=== PATIENT | female | born 1985 | race African-American/Black ===

== ENCOUNTER → 2024-12-14 14:48 | Outpatient (BNVA) | payer OTHER, SELFPAY | PROVIDERS: Visit Provider Surgery ==

== ENCOUNTER 2024-12-17 08:24 | Outpatient (AMB) | payer OTHER, SELFPAY ==
--- OUTSIDE RECORDS SUMMARY | 2024-12-17 08:26 | XMS_ITS | Clinical Summary ---
Author Organization [facility] [address] [place] [address] Address [address] [place], [place] Phone Care Team Providers Care Food And Beverage Lead Name Role Phone Britney Wasserman MD Primary Care Provider [phone] Allergies No known active allergies Medications No known medications Active Problems Problem Noted Date Diagnosed Date Major depression 10/05/2019 Overview (06/25/2024): Followed by [facility] Obesity 02/10/2015 Plantar fasciitis, bilateral 04/22/2014 Anemia 04/01/2009 Overview (06/25/2024): IMO Update Fall 2015 Encounters Date Type Department Care Team Description 11/16/2024 1:36 PM EDT - 11/16/2024 11:59 PM EDT Hospital Encounter Radiology Department - [address] [phone] Symptoms in breast Discharge Disposition: Home or Self Care 11/16/2024 1:36 PM EDT - 11/16/2024 11:59 PM EDT Hospital Encounter Radiology Department - [address] [phone] Symptoms in breast Discharge Disposition: Home or Self Care 11/05/2024 9:00 AM EDT Office Visit Adult Medicine [address] [phone] Catherine Killian, FIORDALIZA Symptoms in breast (Primary Dx) 11/02/2024 Telephone Adult Medicine [address] [phone] Britney Wasserman MD Breast Problem from Last 3 Months Immunizations Name Administration Dates Next Due PPD Test 10/05/2013 Tdap Tetanus diptheria acell ular pertussis (Boostrix; Adacel) 7yo and older 07/13/2017,10/04/2013 Surgical History Surgery Date Site/Laterality Comments TONSILLECTOMY PROCEDURE: HISTORICAL TONSILLECTOMY OVARIAN CYST REMOVAL 07/2011 PROCEDURE: OH OVARIAN CYSTECTOMY UNI/BI; COMMENT: L WISDOM TOOTH EXTRACTION 12/2016 PROCEDURE: HISTORICAL WISDOM TEETH EXTRACTION; COMMENT: 3 wisdon teeth removed COLPOSCOPY 2005 PROCEDURE: OH COLPOSCOPY ENTIRE VAGINA W/VAGINA/CERVIX BX Medical History Medical History Date Comments Anemia DX:Anemia Seasonal allergies DX:Seasonal a llergies Other specified personal his tory presenting hazards to health(V15.89) 2005 DX:Other specifie d personal history presenting hazards to health(V15.89); COMMENT: ?MAILE I Plantar fasciitis, bilateral 04/22/2014 DX: Plantar fasciitis, bilateral Family History Medical History Relation Name Comments Colon cancer Aunt maternal aunt u terine ca,luekemia No Known Problems Brother Healthy No Known Problems Daughter Healthy No Known Problems Father Healthy No Known Problems Maternal Grandfather No Known Problems Maternal Grandmother No known family hx, passed when her mother was 5 years old No Known Problems Mother Healthy No Known Problems Paternal Grandfather He althy Diabetes Paternal Grandmother Passed around age 60 Hypertension Paternal Grandmother Other: Kidney transplant Paternal Grandmother Thyroid disease Sister Colon cancer Uncle pat side - gran dmother's brother Breast cancer Neg Hx Ovarian cancer Neg Hx Pancreatic cancer Neg Hx Prostate cancer Neg Hx Relation Name Status Comments Aunt Brother Alive healthy Daughter Alive Father Alive healthy Maternal Grandfather Maternal Grandmother Mother Alive asthma Paternal Grandfather Alive Paternal Grandmother Sister Alive thyroid disorde r Uncle Social History Tobacco Use Types Packs/Day Years Used Date Smoking Tobacco: Light Smoker Smokeless Tobacco: Never Alcohol Use Standard Drinks/Week Comments Yes 0 (1 standard drink = 0.6 oz pur e alcohol) Housing Instability Answer Date Recorde d Are you worried that in the next 2 months you may not have stable housing? No 11/03/2024 Food Access & Nutrition Answer Date Rec orded Do you have access to a vari ety of food including fruits and vegetables? No 11/03/2024 Access to Healthcare Answer Date Record ed Within the last 3 months, ho w many times did you visit the emergency department for your medical care? 0 11/03/2024 Health Literacy Answer Date Recorded How often do you need to hav e someone help you when you read instructions, pamphlets, or other written material from your doctor or pharmacy? Never 11/03/2024 Caregiver: How often do you need to have someone help you when you read instructions, pamphlets, or other written material from your doctor or pharmacy? Not on file 11/03/2024 Financial Risk Answer Date Recorded How hard is it for you to pa y for the very basics like food, housing, medical care, and air conditioning / heating? Not very hard 11/03/2024 Transportation Answer Date Recorded Has the lack of transportati on kept you from meetings, work, or from getting things needed for daily living? No Has the lack of transportati on kept you from medical appointments or from getting medications? No 11/03/2024 Social Isolation Answer Date Recorded How often do you feel lonely or isolated from th ose around you? Never 11/03/2024 Food Risk Answer Date Recorded Within the past 12 months we worried whether our food would run out before we got money to buy more. Never true 11/03/2024 Within the past 12 months th e food we bought just didn't last and we didn't have money to get more. Never true 11/03/2024 Dependent Care Answer Date Recorded Do you need help finding or paying for care for your loved ones. For example, childrens club attendant or elderly care for an older adult? No 11/03/2024 Education Answer Date Recorded Do you think completing more education or training, like finishing a GED, going to college, or learning a trade, would be helpful for you? No 11/03/2024 Employment and Income Answer Date Recor ded During the last four weeks, have you been actively looking for work? No 11/03/2024 Living Situation Answer Date Recorded What is your living situation? 0 11/03/2024 Comments Unknown Sex and Gender Information Value Date Recorded Sex Assigned at Not on file Legal Sex Female 4:00 AM EST Gender Identity Not on file Sexual Orientation Not on file Obstetrics History Para Term AB IAB SAB Ectopic Multiple Livin g Live Births 2 2 2 2 Date Outcome GA Total Labor Labor/2nd/3rd Weight Sex Type Anes PTL Emily A1 A5 Name Clin Term Term Last Filed Vital Signs Vital Sign Reading Time Taken Comments Blood Pressure 128/74 11/05/2024 9:23 AM EDT Pulse 74 11/05/2024 9:23 AM EDT Temperature 36.1 ??C (97 ??F) 11/05/2024 9:23 AM EDT Respiratory Rate 16 11/05/2024 9:23 AM EDT Oxygen Saturation 99% 11/05/2024 9:23 AM EDT Inhaled Oxygen Concentration - - Weight 105 kg (230 lb 9.6 oz) 11/05/2024 9:23 AM EDT Height 170.2 cm (5' 7 ) 11/05/2024 9:23 AM EDT Body Mass Index 36.12 11/05/2024 9:23 AM EDT Plan of Treatment Health Maintenance Due Date Last Done Comments Hepatitis B Vaccines (1 of 3 - 19+ 3-dose series) 2004 Pneumococcal Vaccine: Pediatrics (0 to 5 Years) and At-Risk Patients (6 to 64 Years) (1 of 2 - PCV) 2004 COVID-19 Vaccine (2023-2 5 season) 2024 Influenza Vaccine (Season Ended) 2025 Cervical Cancer Screening: HPV 06/19/2025 06/19/2020 Depression Screening 11/03/2025 11/03/2024 Social Influencers of Health Screening 11/03/2025 11/03/2024 DTaP,Tdap,and Td Vaccines (3 - Td or Tdap) 07/13/2027 07/13/2017, 10/04/2013 Cholesterol Screening (Lipid Panel) 01/11/2028 01/10/2023 HIV Screening Completed 04/29/2017 Hepatitis C Screening Completed 01/10/2023 HIB Vaccines Aged Out No longer eligi ble based on patient's age to complete this topic HPV Vaccines Aged Out No longer eligi ble based on patient's age to complete this topic Hepatitis A Vaccines Aged Out No long er eligible based on patient's age to complete this topic IPV Vaccines Aged Out No longer eligi ble based on patient's age to complete this topic MMR Vaccines Aged Out No longer eligi ble based on patient's age to complete this topic Meningococcal ACWY Vaccine Aged Out N o longer eligible based on patient's age to complete this topic Meningococcal B Vaccine Aged Out No l onger eligible based on patient's age to complete this topic RSV Immunization Patients Under 20 months Aged Out No longer eligible b ased on patient's age to complete this topic Varicella Vaccines Aged Out No longer eligible based on patient's age to complete this topic Procedures Procedure Name Priority Date/Time Associated Diagnosis Comments US BREAST LIMITED LEFT Routine 11/16/2024 2:24 PM EDT Symptoms in breast MG MAMMO DIAGNOSTIC ADDL VIEWS BILAT Routine 11/16/2024 2:08 PM EDT Symptoms in breast HCG, SERUM, QUALITATIVE Routine 11/05/2024 10:25 AM EDT Symptoms in breast THYROID STIMULATING HORMONE WITH REFLEX TO FREE T4 AND FREE T3 Routine 11/05/2024 10:25 AM EDT Symptoms in breast HEPATITIS C SCREENING Routine 01/10/2023 LIPID PANEL Routine 01/10/2023 HPV Routine 06/19/2020 HIV SCREENING Routine 04/29/2017 from Last 3 Months or Most Recently Relevant to Health Maintenance Results * US Breast Limited Left (11/16/2024 2:24 PM EDT) Anatomical Region Laterality Modality Breast Left Ultrasound 11/16/2024 2:11 PM EDT Impressions 11/16/2024 2:48 PM EDT Benign. ??Findings and recommendations were conveyed to the patient. ? BI-RADS CATEGORY: 1 - NEGATIVE RECOMMENDATION: Return to annual mammography. Return to annual mammography. Return to annual mammography. Return to annual mammography. Mammo Location: [facility], [address] [place] [address], [id number], . -------- FINAL REPORT -------- Dictated By: Elvira Little Dictated Date: 11/16/2024 14:11 ET Assigned Physician: Elvira Little Reviewed and Electronically Signed By: Elvira Little Signed Date: 11/16/2024 14:48 ET Workstation ID: [id number] Transcribed By: Self Edit Transcribed Date: 11/16/2024 14:14 ET Narrative 11/16/2024 2:48 PM EDT CLINICAL: 39 years old, Female, tingling left breast. COMPARISON: None. ?? FINDINGS: MAMMOGRAPHY TECHNIQUE: Bilateral MLO and CC views were obtained digitally with 3-D mammogram (digital breast tomosynthesis). ??Computer-aided detection was utilized in evaluation of this exam (CAD). There is no evidence of suspicious mass or architectural distortion. ??No worrisome calcifications are evident. ??There has been no significant change from prior exam(s). ?? BREAST DENSITY: B - There are scattered areas of fibroglandular density. ULTRASOUND TECHNIQUE: Ultrasound survey ??evaluation of the area of tingling indicated by the patient in the inner lower left breast was performed. There is no evidence of morphologically suspicious mass. Procedure Note Elvira Little MD - 11/16/2024 CLINICAL: 39 years old, Female, tingling left breast. COMPARISON: None. FINDINGS: MAMMOGRAPHY TECHNIQUE: Bilateral MLO and CC views were obtained digitally with 3-Dmammogram (digital breast tomosynthesis). Computer-aided detection wasutilized in evaluation of this exam (CAD). There is no evidence of suspicious mass or architectural distortion. Noworrisome calcifications are evident. There has been no significantchange from prior exam(s). BREAST DENSITY: B - There are scattered areas of fibroglandular density. ULTRASOUND TECHNIQUE: Ultrasound survey evaluation of the area of tingling indicatedby the patient in the inner lower left breast was performed. There is no evidence of morphologically suspicious mass. IMPRESSION: Benign. Findings and recommendations were conveyed to the patient. BI-RADS CATEGORY: 1 - NEGATIVE RECOMMENDATION: Return to annual mammography. Return to annual mammography. Return toannual mammography. Return to annual mammography. Mammo Location: [facility], [address] [place] [address], [phone], . -------- FINAL REPORT -------- Dictated By: Elvira Little Dictated Date: 11/16/2024 14:11 ET Assigned Physician: Elvira Little Reviewed and Electronically Signed By: Elvira Little Signed Date: 11/16/2024 14:48 ET Workstation ID: [id number] Transcribed By: Self Edit Transcribed Date: 11/16/2024 14:14 ET us Catherine Killian DIRECTOR [employer] IMG US PROCEDURES Final Resu lt * MG Mammo Diagnostic Addl Views bilat (11/16/2024 2:08 PM EDT) Anatomical Region Laterality Modality Breast Bilateral Mammography 11/16/2024 2:11 PM EDT Impressions 11/16/2024 2:48 PM EDT Benign. ??Findings and recommendations were conveyed to the patient. ? BI-RADS CATEGORY: 1 - NEGATIVE RECOMMENDATION: Return to annual mammography. Return to annual mammography. Return to annual mammography. Return to annual mammography. Mammo Location: [facility], [address] [place] [address], [phone], . -------- FINAL REPORT -------- Dictated By: Elvira Little Dictated Date: 11/16/2024 14:11 ET Assigned Physician: Elvira Little Reviewed and Electronically Signed By: Elvira Little Signed Date: 11/16/2024 14:48 ET Workstation ID: [id number] Transcribed By: Self Edit Transcribed Date: 11/16/2024 14:14 ET Narrative 11/16/2024 2:48 PM EDT CLINICAL: 39 years old, Female, tingling left breast. COMPARISON: None. ?? FINDINGS: MAMMOGRAPHY TECHNIQUE: Bilateral MLO and CC views were obtained digitally with 3-D mammogram (digital breast tomosynthesis). ??Computer-aided detection was utilized in evaluation of this exam (CAD). There is no evidence of suspicious mass or architectural distortion. ??No worrisome calcifications are evident. ??There has been no significant change from prior exam(s). ?? BREAST DENSITY: B - There are scattered areas of fibroglandular density. ULTRASOUND TECHNIQUE: Ultrasound survey ??evaluation of the area of tingling indicated by the patient in the inner lower left breast was performed. There is no evidence of morphologically suspicious mass. Procedure Note Elvira Little MD - 11/16/2024 CLINICAL: 39 years old, Female, tingling left breast. COMPARISON: None. FINDINGS: MAMMOGRAPHY TECHNIQUE: Bilateral MLO and CC views were obtained digitally with 3-Dmammogram (digital breast tomosynthesis). Computer-aided detection wasutilized in evaluation of this exam (CAD). There is no evidence of suspicious mass or architectural distortion. Noworrisome calcifications are evident. There has been no significantchange from prior exam(s). BREAST DENSITY: B - There are scattered areas of fibroglandular density. ULTRASOUND TECHNIQUE: Ultrasound survey evaluation of the area of tingling indicatedby the patient in the inner lower left breast was performed. There is no evidence of morphologically suspicious mass. IMPRESSION: Benign. Findings and recommendations were conveyed to the patient. BI-RADS CATEGORY: 1 - NEGATIVE RECOMMENDATION: Return to annual mammography. Return to annual mammography. Return toannual mammography. Return to annual mammography. Mammo Location: [facility], [address] [place] [address], [phone], . -------- FINAL REPORT -------- Dictated By: Elvira Little Dictated Date: 11/16/2024 14:11 ET Assigned Physician: Elvira Little Reviewed and Electronically Signed By: Elvira Little Signed Date: 11/16/2024 14:48 ET Workstation ID: [id number] Transcribed By: Self Edit Transcribed Date: 11/16/2024 14:14 ET Catherine Killian NP IMG BI PROCEDURES Final Resu lt * Thyroid stimulating hormone with reflex to free t4 and free t3 (11/05/2024 10:25 AM EDT) [facility] TSH 2.16 0.40 - 4.00 mcIU/mL LAB CHEMISTRY METHOD 11/05/2024 12:51 PM EDT [facility] Blood Venous blood specimen / Unknown Venipuncture / Unknown 11/05/2024 10:25 AM EDT 11/05/2024 10:25 AM EDT Catherine Killian DIRECTOR [employer] LAB BLOOD ORDERABLES Final R esult [facility] [address] [place] [address], [place] [phone] * HCG, serum, qualitative (11/05/2024 10:25 AM EDT) [facility] hCG Qual Negative Negative 11/05/2024 2:09 PM EDT [facility] Blood Venous blood specimen / Unknown Venipuncture / Unknown 11/05/2024 10:25 AM EDT 11/05/2024 10:25 AM EDT Catherine Killian DIRECTOR [employer] LAB BLOOD ORDERABLES Final R esult [facility] [address] [place] [address], [place] [phone] * Hepatitis C Screening (01/10/2023) [facility] Hepatitis C Screening abstracted Historical Provider HEALTH MAINTENANCE Final Result * Lipid panel (01/10/2023) [facility] LDL/HDL Ratio 3 0 - 4 Triglycerides 54 0 - 150 mg/dL Cholesterol 160 0 - 200 mg/dL HDL 54 >=40 mg/dL LDL Cholesterol 96 0 - 100 mg/dL Blood Venous blood specimen / Unknown Historical Provider LAB BLOOD ORDERABLES Manju l Result * Cervical Cancer Screening: HPV (06/19/2020) Pathologist [facility] Cervical Cancer Screening: HPV negative, abstracted Historical Provider HEALTH MAINTENANCE Final Result * HIV Screening (04/29/2017) Pathologist [facility] HIV Screening abstracted Historical Provider HEALTH MAINTENANCE Final Result from Last 3 Months or Most Recently Relevant to Health Maintenance Insurance [facility] [employer] Care Teams Food And Beverage Lead Relationship Specialty Start Date End Date Britney Wasserman MD [address] [place] [id number] PCP - General 11/09/22
--- NOTE | 2024-12-17 10:20 | MHC.OFFVISWM ---
VS Expanded 12/17/24 10:29 Height 5 ft 7 in Weight 229 lb 8 oz BMI 35.9 Body Fat % 44.9 Body Fat Mass 103.2 Fat Free Mass 126.6 Visceral Fat Rating 11 Body Water % 39.3 Body Water Mass 90.4 Basal Metabolic Rate/Score 1,787 Intake Visit Reasons: TV [employer]IN[employer]ING [employer] W[employer] SWL BMI 36 Allergies No Known Allergies [No Known Allergies*] Allergy (Verified 12/17/24 10:20) Medication List - Last Reconciled 12/17/24 by Lloyd Cabrera MD No Known Home Meds HPI HPI TV [employer]IN[employer]ING STEEL [employer] W[employer] M[employer] SWL BMI 36: Details: Start time: 10.10am, End time: 10.55am ?I spent 40 minutes speaking with the patient on the phone plus an additional 5 minutes reviewing and updating records for a total of 45 minutes HPI Comments Details: Previous weight loss efforts: Self diet and exercise Wakes up: 7am, Sleeps: 10pm Breakfast: 8.30am (2-3/wk: Bagel, breakfast sandwich) Lunch: 12pm (salads, Chipotle) Dinner: 6pm (chicken rice, pasta, vegetables) Snacks: 4pm (chips), 8pm (chips or ice cream) Exercise: has home stepper Beverages: Coffee (1 cup/d with cream and sugar), tea: none, soda: none, juice: (lemonade 1/wk), ETOH: 1/wk (1 Vodka, or 2-3 beers) PFSH Medical History (Updated 12/17/24 @ 10:35 by Lloyd Cabrera MD) BMI 36.0-36.9,adult Obesity Surgical History (Updated 12/14/24 @ 14:59 by CHRISTOS Foy) Hx of adenoidectomy Hx of removal of cyst Hx of tonsillectomy Family History (Updated 12/14/24 @ 14:59 by CHRISTOS Foy) Paternal Grandmother HTN (hypertension) Diabetes Telehealth Telehealth Telehealth Platform: Telephone Location of provider rendering services: practice address Location of patient: address on file Patient Identification confirmed using: Name, : Yes Telehealth method: voice only Patient verbally consented to treatment: Yes Patient verbally consented to billing insurance company: Yes Patient informed of any privacy concerns related to visit: Yes Minutes spent on Phone/Video with Pt.: 45 Assessment & Plan Assessment & Plan (1) Obesity: Code(s): E66.9 - Obesity, unspecified Category: Medical Qualifiers: Obesity type: due to excess calories Obesity classification: adult class 2 (BMI 35 - 39.9) Serious obesity comorbidity presence: without serious comorbidity Body mass index: BMI 36.0-36.9 Qualified Code(s): E66.812 - Obesity, class 2; E66.09 - Other obesity due to excess calories; Z68.36 - Body mass index [BMI] 36.0-36.9, adult Plan: 1.? Plan for lap sleeve gastrectomy. If diaphragmatic or ventral hernias are present at time of surgery, these will be repaired laparoscopically as well. I emphasized the importance of close follow-up, adherence to instructions and good communication. The surgery does not replace the need to change your lifestlyle which is the cause of the obesity problem. The surgery provides the motivation to try again to change your lifestyle, it reduces the appetite and make the transition to a better lifestyle easier and doubles the amount of weight you would lose compared to doing the lifestyle change without the surgery. You will need to be on a liquid diet with protein shakes for 2 weeks before surgery to maximize weight loss and boost your nutritional status to recover better from surgery and also for the first two weeks after surgery to let the stomach heal before we introduce other foods. After the first 2 weeks we will introduce protein bars and soft foods like scrambled eggs, cottage cheese and yogurt and after the 6th week will introduce meat, fish and cooked vegetables in small amounts. Over time you should be able to eat everything in small amounts. Side effects like nausea, vomiting, heartburn or abdominal pain are not common in the practice unless you are not following in the practice. This operation requires lifetime commitment to following in our practice and communication with me. You will much less weight and experience side effects if you don?t communicate or not following in the practice. Complications are rare and in our practice is about 1/10 of the national average. However, you can develop bleeding that may require transfusion (hasn?t happened for year in the practice), you may from complications (we did not have any deaths in the practice) and infections. Infections are usually a result of breakdown in communication or not understanding or following directions correctly. They are difficult to treat, they can happen during the first 6 weeks, they may require to be in the hospital for weeks or even months, not being able to eat by mouth and you may have drains and surgeries to try and correct the issue. Other risks and complications include possible conversion to an open procedure, leaks, small bowel obstruction, blood clots, cardiac, or pulmonary complications, as termite control technician complications such as ulcers, insufficient weight loss and vitamin deficiencies. 2.? Nutritional counseling. Start with one Premier premade protein (buy at [employer]) shake (mix 4oz of Premier shake with 4oz low fat unsweetened almond milk) at 8am-10am, 1 protein bar (Fit Crunch protein bars, buy at [employer]) at 11am-1pm, another Premier premade protein shake (mix 4oz of Premier shake with 4oz low fat unsweetened almond milk) at 2pm-4pm, dinner at 5pm (8 forks of protein and 8 forks of salad/vegetables) and one more protein bar after dinner at 7pm-9pm. So you do 2 protein shakes, 2 protein bars and one meal per day. Meal to include lean meat (beef, fish, pork, turkey, chicken), or south african yogurt, or egg whites, or beans with a salad with olive oil and fruits (berries, pears, apples, kiwi). Avoid salt, breads, potatoes, rice, pasta, desserts. 3. Each shake would be drunk slowly, like coffee in a period of 2 hours. 4. Cut each bar in 4 pieces and eat each piece in 30min ?to make each bar last 2 hours. 5. I emphasized the importance of measuring accurately the food portion and measure it when serving the food in plate 6. The meal portions include 8 full-size forks of meat and 8 full-size forks of salad. You always eat the meat portion but you can replace up to 4 forks for salad/vegetables with rice, potatoes or pasta, or a fruit ?if you like. The less you do it the better weight loss will be. 7. One full-size fork is what it can be scooped on the fork without falling aside and not what can be bit with the fork. Use regular forks like those you find in a typical restaurant. 8.? Please buy the body composition scale we discussed and send me weight measurements as soon as possible and then once a week. Always include your diet and exercise plan. 9. Start using your stepper machine for 300 calories burn per day, daily. Goal is to burn 2000 calories per week on exercise, which means either 300 calories daily, or 400 calories 5 days per week, or 500 calories 4 days per week, or 650 calories 3 days per week. Start also weight exercises with 20-30lbs for chest/shoulders/abdomen and 40-50lbs for thighs doing 2 sets of 15 repetitions each. 10. The best choice would be to purchase also a stationary bike, or treadmill at home that can track calories. Let me know if you do so I can give you an exercise plan. 11.?It is important of avoiding and for at least 18 months postoperatively and has been discussed at the infosession. 12. Goal is to lose at least 1.5-2lbs per week 13. Goal to lose 10% of your weight before surgery, which is about 23lbs. Ultimate weight goal: 206lbs before surgery 14. Please follow the diet plan exactly without any change. If you don't like something about the plan or you feel hungry you need to communicate with me so I can help you revise the plan. You should not change the plan yourself 15. To be scheduled for EGD to assess the stomach's anatomy. The possibility of biopsies was discussed. Patient needs to avoid use of NSAIDs and aspirin for 1 week prior to EGD. You must be on liquids only the day before your endoscopy. Risks of perforation and bleeding was discussed with the patient. This will be an outpatient procedure with IV sedation. Orders: Orders Insulin Today E66.9 - Obesity, unspecified, Z68.36 - Body mass index [BMI] 36.0-36.9, adult H Pylori Breath Test Today E66.9 - Obesity, unspecified, Z68.36 - Body mass index [BMI] 36.0-36.9, adult Lipid Panel Today E66.9 - Obesity, unspecified, Z68.36 - Body mass index [BMI] 36.0-36.9, adult IRON PROFILE Today E66.9 - Obesity, unspecified, Z68.36 - Body mass index [BMI] 36.0-36.9, adult Comprehensive Met. Panel Today E66.9 - Obesity, unspecified, Z68.36 - Body mass index [BMI] 36.0-36.9, adult Vitamin B1 Today E66.9 - Obesity, unspecified, Z68.36 - Body mass index [BMI] 36.0-36.9, adult Vitamin A Today E66.9 - Obesity, unspecified, Z68.36 - Body mass index [BMI] 36.0-36.9, adult Ferritin Today E66.9 - Obesity, unspecified, Z68.36 - Body mass index [BMI] 36.0-36.9, adult Vitamin D 25-OH Total Today E66.9 - Obesity, unspecified, Z68.36 - Body mass index [BMI] 36.0-36.9, adult US abdomen comp w elastography Today E66.9 - Obesity, unspecified, Z68.36 - Body mass index [BMI] 36.0-36.9, adult FL upper GI w air Today E66.9 - Obesity, unspecified, Z68.36 - Body mass index [BMI] 36.0-36.9, adult Hemoglobin A1c Today E66.9 - Obesity, unspecified, Z68.36 - Body mass index [BMI] 36.0-36.9, adult Complete Blood Count Auto Diff Today E66.9 - Obesity, unspecified, Z68.36 - Body mass index [BMI] 36.0-36.9, adult Vitamin B12 and Folate Today E66.9 - Obesity, unspecified, Z68.36 - Body mass index [BMI] 36.0-36.9, adult Zinc Today E66.9 - Obesity, unspecified, Z68.36 - Body mass index [BMI] 36.0-36.9, adult C Reactive Protein Today E66.9 - Obesity, unspecified, Z68.36 - Body mass index [BMI] 36.0-36.9, adult TSH reflex Free T4 Today E66.9 - Obesity, unspecified, Z68.36 - Body mass index [BMI] 36.0-36.9, adult XR chest 2V Today E66.9 - Obesity, unspecified, Z68.36 - Body mass index [BMI] 36.0-36.9, adult ECG 12 lead EKG Today E66.9 - Obesity, unspecified, Z68.36 - Body mass index [BMI] 36.0-36.9, adult Referrals Behavioral Health Referral E66.9 - Obesity, unspecified, Z68.36 - Body mass index [BMI] 36.0-36.9, adult Nutrition/Dietitian Referral E66.9 - Obesity, unspecified, Z68.36 - Body mass index [BMI] 36.0-36.9, adult
[2024-12-17 10:29] VITALS: BMI 35.9
== END 2024-12-17 10:56 | disposition home or self-care (01) ==
LOC: HO.HBS 08:24
PROVIDERS: Visit Provider Surgery
DX: E66.09 Other obesity due to excess calories (principal); E66.812 Obesity, class 2; Z68.35 Body mass index [BMI] 35.0-35.9, adult
CPT/HCPCS: 99214

== ENCOUNTER → 2024-12-17 08:24 | Outpatient (BNVA) | payer OTHER, SELFPAY | PROVIDERS: Visit Provider Surgery ==

== ENCOUNTER 2025-01-08 08:25 | Outpatient (REF) | payer OTHER, SELFPAY ==
--- NOTE | ~2025-01-08 | XR_ITS ---
CLINICAL HISTORY: E66.9 - Obesity, unspecified 2 view chest x-ray Comparison: None Findings: The lungs are clear. Normal size heart. No acute fracture. IMPRESSION: 1. No acute findings. This document has been electronically signed by: Briana Ahumada MD on 01/08/2025 16:07:19
[2025-01-08 08:38] LABS: MANUAL DIFF FLAG NO
--- NOTE | 2025-01-08 08:42 | ECG_ITS ---
Test Reason : OBESITY Blood Pressure : */* mmHG Vent. Rate : 72 BPM Atrial Rate : 72 BPM P-R Int : 150 ms QRS Dur : 78 ms QT Int : 398 ms P-R-T Axes : 49 27 14 degrees QTcB Int : 435 ms Normal sinus rhythm Normal ECG When compared with ECG of 20-Nov-2018 21:11, No significant change was found Referred By: Lloyd Cabrera Electronically Signed By: MANPREET ZAMORANO
--- OUTSIDE RECORDS SUMMARY | 2025-01-08 08:45 | XMS_ITS | Clinical Summary ---
Author Organization [facility] [address] [place] [address] Address [address], [place] Phone Care Team Providers Care Press Service Reader Name Role Phone Britney Wasserman MD Primary Care Provider [phone] Allergies No known active allergies Medications No known medications Active Problems Problem Noted Date Diagnosed Date Major depression 10/05/2019 Overview (06/25/2024): Followed by [facility] Obesity 02/10/2015 Plantar fasciitis, bilateral 04/22/2014 Anemia 04/01/2009 Overview (06/25/2024): IMO Update Fall 2015 Encounters Date Type Department Care Team Description 11/16/2024 1:36 PM EDT - 11/16/2024 11:59 PM EDT Hospital Encounter Radiology Department - [address] [phone] Symptoms in breast Discharge Disposition: Home or Self Care 11/16/2024 1:36 PM EDT - 11/16/2024 11:59 PM EDT Hospital Encounter Radiology Department - [address] [phone] Symptoms in breast Discharge Disposition: Home or Self Care 11/05/2024 9:00 AM EDT Office Visit Adult Medicine [address] [phone] Catherine Killian, FIORDALIZA Symptoms in breast (Primary Dx) 11/02/2024 Telephone Adult Medicine [address] [phone] Britney Wasserman MD Breast Problem from Last 3 Months Immunizations Name Administration Dates Next Due PPD Test 10/05/2013 Tdap Tetanus diptheria acell ular pertussis (Boostrix; Adacel) 7yo and older 07/13/2017,10/04/2013 Surgical History Surgery Date Site/Laterality Comments TONSILLECTOMY PROCEDURE: HISTORICAL TONSILLECTOMY OVARIAN CYST REMOVAL 07/2011 PROCEDURE: CA OVARIAN CYSTECTOMY UNI/BI; COMMENT: L WISDOM TOOTH EXTRACTION 12/2016 PROCEDURE: HISTORICAL WISDOM TEETH EXTRACTION; COMMENT: 3 wisdon teeth removed COLPOSCOPY 2005 PROCEDURE: CA COLPOSCOPY ENTIRE VAGINA W/VAGINA/CERVIX BX Medical History [...] care for your loved ones. For example, attendant child activity or elderly care for an older adult? [...] mammography. Return to annual mammography. Mammo Location: [facility], [address] [place] [address], [id number], . -------- FINAL REPORT -------- Dictated By: Elvira Little Dictated Date: 11/16/2024 14:11 ET Assigned Physician: Elvira Little Reviewed and Electronically Signed By: Elvira Little Signed Date: 11/16/2024 14:48 ET Workstation ID: [id number] Transcribed By: Self Edit Transcribed Date: 11/16/2024 [...] mammography. Return to annual mammography. Mammo Location: [facility], [address] [place] [address], [phone], . -------- FINAL REPORT -------- Dictated By: Elvira Little Dictated Date: 11/16/2024 14:11 ET Assigned Physician: Elvira Little Reviewed and Electronically Signed By: Elvira Little Signed Date: 11/16/2024 14:48 ET Workstation ID: [id number] Transcribed By: Self Edit Transcribed Date: 11/16/2024 14:14 ET us Catherine Killian DECAL MAKER IMG US PROCEDURES Final Resu lt * [...] mammography. Return to annual mammography. Mammo Location: [facility], [address] [place] [address], [id number], . -------- FINAL REPORT -------- Dictated By: Elvira Little Dictated Date: 11/16/2024 14:11 ET Assigned Physician: Elvira Little Reviewed and Electronically Signed By: Elvira Little Signed Date: 11/16/2024 14:48 ET Workstation ID: [id number] Transcribed By: Self Edit Transcribed Date: 11/16/2024 [...] mammography. Return to annual mammography. Mammo Location: [facility], [address] [place] [address], [phone], . -------- FINAL REPORT -------- Dictated By: Elvira Little Dictated Date: 11/16/2024 14:11 ET Assigned Physician: Elvira Little Reviewed and Electronically Signed By: Elvira Little Signed Date: 11/16/2024 14:48 ET Workstation ID: [id number] Transcribed By: Self Edit Transcribed Date: 11/16/2024 14:14 ET Catherine Killian NP IMG BI PROCEDURES Final Resu lt * Thyroid stimulating hormone with reflex to free t4 and free t3 (11/05/2024 10:25 AM EDT) [facility] TSH 2.16 0.40 - 4.00 mcIU/mL LAB CHEMISTRY METHOD 11/05/2024 12:51 PM EDT [facility] Blood Venous blood specimen / Unknown Venipuncture / Unknown 11/05/2024 10:25 AM EDT 11/05/2024 10:25 AM EDT Catherine Killian DECAL MAKER LAB BLOOD ORDERABLES Final R esult [facility] [address] [place] [address], [place] [phone] * HCG, serum, qualitative (11/05/2024 10:25 AM EDT) [facility] hCG Qual Negative Negative 11/05/2024 2:09 PM EDT [facility] Blood Venous blood specimen / Unknown Venipuncture / Unknown 11/05/2024 10:25 AM EDT 11/05/2024 10:25 AM EDT Catherine Killian DECAL MAKER LAB BLOOD ORDERABLES Final R esult [facility] [address] [place] [address], [place] [phone] * Hepatitis C Screening (01/10/2023) [facility] Hepatitis C Screening abstracted Historical Provider HEALTH MAINTENANCE Final Result * Lipid panel (01/10/2023) [facility] LDL/HDL Ratio 3 0 - 4 Triglycerides 54 0 - 150 mg/dL Cholesterol 160 0 - 200 mg/dL HDL 54 >=40 mg/dL LDL Cholesterol 96 0 - 100 mg/dL Blood Venous blood specimen / Unknown Historical Provider LAB BLOOD ORDERABLES Manju l Result * Cervical Cancer Screening: HPV (06/19/2020) Pathologist [facility] Cervical Cancer Screening: HPV negative, abstracted Historical Provider HEALTH MAINTENANCE Final Result * HIV Screening (04/29/2017) Pathologist [facility] HIV Screening abstracted Historical Provider HEALTH MAINTENANCE Final Result from Last 3 Months or Most Recently Relevant to Health Maintenance Insurance [facility] [employer] Care Teams Press Service Reader Relationship Specialty Start Date End Date Britney Wasserman MD [address] [place] [phone] PCP - General 11/09/22
[2025-01-08 09:52] LABS: Basophils Absolute Auto 0.1 X10*3/uL (0.0-0.2); Basophils Percent Auto 0.6 % (0-2); Eosinophils Percent Auto 0.2 % (0-4); Hematocrit 25.3 % (37.0-47.0); Imm Gran Abs Auto 0.05 X10*3/uL (0.00-0.03); Imm Gran Pct Auto 0.5 % (0.0-0.4); Lymphocytes Absolute Auto 1.7 X10*3/uL (1.2-4.9); Lymphocytes Percent Auto 17.6 % (20-40); Mean Corpuscular HGB Conc 26.9 g/dl (31.0-35.0); Mean Corpuscular Hemoglobin 17.7 pg (27.0-33.0); Mean Corpuscular Volume 65.9 fL (80.0-98.0); Monocytes Absolute Auto 0.5 X10*3/uL (0.1-1.2); Monocytes Percent Auto 4.7 % (2-11); Neutrophils Absolute Auto 7.4 x10*3/uL (2.0-8.3); Neutrophils Percent Auto 76.4 % (45-73); Platelet Count 370 X10*3/uL (160-400); Red Blood Count 3.84 X10*6/uL (4.20-5.50); Red Cell Distribution Width 22.7 % (11.0-16.0); White Blood Count 9.7 X10*3/uL (4.8-10.8)
[2025-01-08 09:58] LABS: Hemoglobin 6.8 g/dl (12.0-16.0)
[2025-01-08 09:59] LABS: Estimated Average Glucose 94 mg/dL; Hemoglobin A1c % 4.9 % (<6.0)
[2025-01-08 10:42] LABS: Alanine Aminotransferase 11 U/L (0-31); Albumin Level 4.5 g/dL (3.5-5.0); Alkaline Phosphatase 83 U/L (39-117); Anion Gap 12 (12-20); Aspartate Amino Transferase 18 U/L (5-31); Bilirubin Total 0.5 mg/dL (0.0-1.0); Blood Urea Nitrogen 10 mg/dL (9-16); C Reactive Protein 0.45 mg/dL (< or = 0.50); Calcium 9.1 mg/dL (8.4-10.2); Carbon Dioxide 23 mmol/L (22-29); Chloride 111 mmol/L (96-108); Cholesterol 145 mg/dL (<200); Estimated Glomerular Filt Rate > 60; Glucose Random 101 mg/dL (60-115); HDL Cholesterol 43 mg/dL (>40); Iron 17 mcg/dL (30-160); LDL Cholesterol Calculated 89 mg/dL (<100); Percent Iron Saturation 4 % (15-50); Potassium 3.9 mmol/L (3.3-5.1); Sodium 142 mmol/L (135-145); Total Iron Binding Capacity 453 mcg/dL (228-428); Total Protein 8.2 g/dL (6.5-8.0); Triglycerides 67 mg/dL (<150); Unsaturated Iron Binding 436 ug/dL
[2025-01-08 11:07] LABS: Folate 8.2 ng/mL (> or = 4.0); Vitamin B12 452 pg/mL (200-900)
[2025-01-08 11:30] LABS: Ferritin 4 ng/mL (10-122); Insulin 12 uU/mL (2-29); TSH reflex Free T4 2.17 uIU/mL (0.32-4.0); Vitamin D 25-OH Total 19.4 ng/mL (>30)
[2025-01-11 05:48] LABS: Zinc 58 mcg/dL (60-130)
[2025-01-12 00:58] LABS: Vitamin A 33 mcg/dL (38-98)
[2025-01-12 11:54] LABS: Vitamin B1 7 nmol/L (8-30)
== END 2025-01-08 08:26 | disposition home or self-care (01) ==
LOC: HO.LAB 08:25
PROVIDERS: Visit Provider Surgery
DX: E66.9 Obesity, unspecified (principal); Z68.36 Body mass index [BMI] 36.0-36.9, adult
CPT/HCPCS: 36415; 71046; 80053; 80061; 82306; 82607; 82728; 82746; 83036; 83525; 83540; 84425; 84443; 84590; 84630; 85025; 86140; 93005

== ENCOUNTER → 2025-01-08 08:42 | Outpatient (BNV) | payer OTHER, SELFPAY | PROVIDERS: Visit Provider Internal Medicine | DX: E66.9 Obesity, unspecified (principal) | CPT/HCPCS: 93010 ==

== ENCOUNTER → 2025-01-08 08:43 | Outpatient (BNV) | payer OTHER, SELFPAY | PROVIDERS: Visit Provider Nuclear Medicine | DX: E66.9 Obesity, unspecified (principal) | CPT/HCPCS: 71046 ==